=== PATIENT | male | born 1940 | race Caucasian/White ===

== ENCOUNTER 2020-08-13 15:51 | Emergency (ER) | payer MEDICARE, OTHER ==
--- NOTE | 2020-08-13 17:34 | EDM.PDOC ---
ED HPI GENERAL MEDICAL PROBLEM - General Chief Complaint: Lower Extremity Injury/Pain Stated Complaint: BITE ON LEFT ANKLE, POSSIBLE INFECTION Time Seen by Provider: 08/13/20 17:30 Source of Information: Reports: Patient, Family, RN - History of Present Illness INITIAL COMMENTS - FREE TEXT/NARRATIVE: Patient with reddened raised area warm to touch covering the medial part of ankle and forefoot of his left ankle. Patient started to notice this approximately 5 to 6 days ago. 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 Possibly a spider bite. As this goes forward the area has significantly gotten worse he has now slight blister formation. Warm to touch. Central area medial side of ankle is much darker which could have been the source spot. Patient has no difficulty walking. No excess pain. Has tried nothing to treat this. The patient He is concerned however that it is grown significantly over the last couple of days. Onset: Sudden Duration: Day(s):, Getting Worse Location: Reports: Lower Extremity, Left Quality: Reports: Pressure Severity: Moderate Improves with: Reports: None Worsens with: Reports: None Context: Reports: Trauma (Unsure if bug bite or injury. 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) (None) - Related Data Allergies Allergy/AdvReac Type Severity Reaction Status Date / Time No Known Allergies Allergy Verified 08/13/20 16:17 Home Meds: Home Meds Aspirin [Halfprin] 81 mg PO DAILY 08/13/20 [History] Clindamycin HCl 300 mg PO QID #40 capsule 08/13/20 [Rx] Fexofenadine [Laura] 180 mg PO DAILY 08/13/20 [History] Losartan [Cozaar] 100 mg PO DAILY 08/13/20 [History] Potassium Gluconate [Potassium] 2 tab PO DAILY 08/13/20 [History] Sertraline [Zoloft] 1 tab PO DAILY 08/13/20 [History] amLODIPine [Norvasc] 5 mg PO DAILY 08/13/20 [History] hydroCHLOROthiazide [Hydrochlorothiazide] 25 mg PO DAILY 08/13/20 [History] Past Medical History HEENT History: Reports: Impaired Vision Cardiovascular History: Reports: Hypertension Genitourinary History: Reports: Prostate Disorder Musculoskeletal History: Reports: Arthritis Psychiatric History: Reports: Anxiety Endocrine/Metabolic History: Reports: Obesity/BMI 30+ - Infectious Disease History Infectious Disease History: Reports: Chicken Pox, Measles, Mumps - Past Surgical History Head Surgeries/Procedures: Reports: None HEENT Surgical History: Reports: Cataract Surgery Cardiovascular Surgical History: Reports: None Endocrine Surgical History: Reports: None Musculoskeletal Surgical History: Reports: None Dermatological Surgical History: Reports: None Social & Family History - Tobacco Use Tobacco Use Status *Q: Never Tobacco User Second Hand Smoke Exposure: No - Caffeine Use Caffeine Use: Reports: None - Alcohol Use Days Per Week of Alcohol Use: 7 Number of Drinks Per Day: 2 Total Drinks Per Week: 14 - Recreational Drug Use Recreational Drug Use: No Review of Systems - Review of Systems Review Of Systems: See Below Constitutional: Reports: No Symptoms Respiratory: Reports: No Symptoms Cardiovascular: Reports: No Symptoms GI/Abdominal: Reports: No Symptoms Skin: Reports: No Symptoms Neurological: Reports: No Symptoms Psychiatric: Reports: No Symptoms ED EXAM, GENERAL - Physical Exam Exam: See Below Exam Limited By: No Limitations General Appearance: Alert, WD/WN, No Apparent Distress Respiratory/Chest: No Respiratory Distress, Lungs Clear, Normal Breath Sounds Cardiovascular: Normal Peripheral Pulses, Regular Rate, Rhythm, No Edema, No Gallop Extremities: Normal Range of Motion, Non-Tender, Normal Capillary Refill, Pedal Edema (Left ankle), Joint Swelling (Left ankle), Increased Warmth, Redness, Other (Fine vesicle filled blisters on left ankle) Neurological: Alert, Oriented, CN II-XII Intact, Normal Cognition, Normal Gait, Normal Reflexes Psychiatric: Normal Affect, Normal Mood Skin Exam: Warm, Dry, Erythema, Increased Warmth, Wound/Incision (25 x 15 cm at widest margins) Lymphatic: No Adenopathy Course - Vital Signs Last Recorded V/S: Last Vital Signs Temp 36.1 C 08/13/20 16:19 Pulse 60 08/13/20 16:19 Resp 18 08/13/20 16:19 BP 165/100 H 08/13/20 16:19 Pulse Ox 100 08/13/20 16:19 - Orders/Labs/Meds Meds: Medications Discontinued Medications Generic Name Dose Route Start Last Admin Trade Name Freq PRN Reason Stop Dose Admin Clindamycin HCl 300 mg 08/13/20 17:46 08/13/20 18:06 Clindamycin Hcl 150 Mg Cap PO 08/13/20 17:47 300 mg ONETIME ONE Administration Diphtheria/Tetanus/Acell Pertussis 0.5 ml 08/13/20 17:49 08/13/20 18:06 Diphtheria,Pertussis(Acell),Tetanus Vaccine 0.5 Ml Syringe IM 08/13/20 17:50 0.5 ml .ONCE ONE Administration - Re-Assessments/Exams Free Text/Narrative Re-Assessment/Exam: 08/13/20 17:40 Will provide Rx for clindamycin to be taken for 10 days. If redness extends up on defined areas patient to follow-up with primary care provider. If after antibiotic is complete significant improvement is not achieved follow-up with primary care provider. If shortness of breath pain numbness tingling or increase swelling return to primary care provider or ER for further evaluation. Departure - Departure Time of Disposition: 18:22 Disposition: Home, Self-Care 01 Condition: Fair Clinical Impression: Cellulitis - Discharge Information *PRESCRIPTION DRUG MONITORING PROGRAM REVIEWED*: Not Applicable *COPY OF PRESCRIPTION DRUG MONITORING REPORT IN PATIENT PREET: Not Applicable Prescriptions: Clindamycin HCl 300 mg PO QID #40 capsule Instructions: Cellulitis, Adult Referrals: PCP,None [Primary Care Provider] - Forms: ED Department Discharge Additional Instructions: Clindamycin 4 times a day for 10 days. First dose given in the ER. If area of redness exceeds defined markings by more than 1 cm patient is to report immediately to the ER or to his primary care provider. If after completion of antibiotics significant improvement of the area is not noted return to ER or to primary care provider. Sepsis Event Note (ED) - Evaluation Sepsis Screening Result: No Definite Risk - Focused Exam Vital Signs: Vital Signs Temp Pulse Resp BP Pulse Ox 08/13/20 16:19 36.1 C 60 18 165/100 H 100 08/13/20 16:09 36.1 C 60 18 165/100 H 100 - Assessment/Plan Assessment:: Cellulitis of left ankle Plan: Clindamycin therapy. Follow-up with primary care provider if not significant improvement or cellulitis extends beyond educated margins.
[2020-08-13] MEDS ORDERED: Clindamycin HCl 150 MG Cap PO ONE (17:46)
[2020-08-13] MEDS ORDERED: Diphtheria,Pertussis(Acell),Tetanus Vaccine 0.5 ML Syringe IM ONE (17:49)
== END 2020-08-13 18:22 | disposition home or self-care (01) ==
LOC: JP.ED 15:51
DX: L03.116 Cellulitis of left lower limb (principal); I10 Essential (primary) hypertension; M19.90 Unspecified osteoarthritis, unspecified site; E66.9 Obesity, unspecified; Z68.36 Body mass index [BMI] 36.0-36.9, adult; Z23 Encounter for immunization; Z79.82 Long term (current) use of aspirin; Z79.899 Other long term (current) drug therapy
CPT/HCPCS: 90471; 90715; 99283; A9270